=== PATIENT | female | born 1995 | race Caucasian/White ===

== ENCOUNTER → 2024-04-08 | Outpatient (CLI) | payer BC | END | disposition home or self-care (01) | LOC: RADECHMAIN 16:55 | PROVIDERS: ATTEND Family Medicine | DX: Z53.9 Procedure and treatment not carried out, unspecified reason (principal) ==

== ENCOUNTER → 2024-04-08 | Outpatient (CLI) | payer BC ==
--- NOTE | 2024-04-08 17:32 | CA ---
Transthoracic Echo Report Name: Marilyn Gillette Age: 29 Gender: F : 1995 Exam Date: 04/08/2024 17:01 Exam Location: [facility] Ht (in): 65 Wt (lb): 150 Ordering Physician: Lefi Atkins DO Attending/Referring Phys: Madiha Wise PAC Electrical Mechanical Technician Daniela Juarez RDCS Procedure CPT: Indications: R42 dizziness and giddiness Cardiac Hx: Technical Quality: Good Contrast 1: Total Dose (mL): Contrast 2: Total Dose (mL): MEASUREMENTS (Male / Female) Normal Values 2D ECHO LV Diastolic Diameter PLAX 4.7 cm 4.2 - 5.9 / 3.9 - 5.3 cm LV Systolic Diameter PLAX 2.8 cm IVS Diastolic Thickness 0.8 cm 0.6 - 1.0 / 0.6 - 0.9 cm LVPW Diastolic Thickness 0.8 cm 0.6 - 1.0 / 0.6 - 0.9 cm LV Relative Wall Thickness 0.3 LVOT Diameter 2.0 cm LV Diastolic Volume MOD BP 104.2 cm??? 67 - 155 / 56 - 104 cm??? LV Systolic Volume MOD BP 47.1 cm??? 22 - 58 / 19 - 49 cm??? LV Ejection Fraction MOD BP 54.7 % >= 55 % LV Cardiac Index MOD BP 2406.3 cm???/min???m??? LV Diastolic Volume MOD 4C 105.7 cm??? LV Systolic Volume MOD 4C 47.1 cm??? LV Ejection Fraction MOD 4C 55.5 % LV Cardiac Index MOD 4C 2476.2 cm???/min???m??? LV Diastolic Length 4C 8.0 cm LV Systolic Length 4C 6.6 cm LV Diastolic Volume MOD 2C 102.2 cm??? LV Systolic Volume MOD 2C 44.0 cm??? LV Ejection Fraction MOD 2C 56.9 % LV Cardiac Index MOD 2C 2456.4 cm???/min???m??? LV Diastolic Length 2C 8.1 cm LV Systolic Length 2C 6.2 cm LA Volume 48.9 cm??? 18 - 58 / 22 - 52 cm??? LA Volume Index 27.5 cm???/m??? 16 - 28 cm???/m??? Ascending Aorta Diameter 2.6 cm DOPPLER AV Peak Velocity 118.0 cm/s AV Peak Gradient 5.6 mmHg AV Mean Velocity 81.4 cm/s AV Mean Gradient 2.9 mmHg AV Velocity Time Integral 23.8 cm LVOT Peak Velocity 101.1 cm/s LVOT Peak Gradient 4.1 mmHg LVOT Velocity Time Integral 20.6 cm LVOT Stroke Volume 64.1 cm??? LVOT Stroke Volume Index 36.6 ml/m??? LVOT Cardiac Index 2704.8 cm???/min???m??? AV Area Cont Eq vti 2.7 cm??? AV Area Cont Eq pk 2.7 cm??? MV Area PHT 4.4 cm??? Mitral E Point Velocity 61.3 cm/s Mitral A Point Velocity 47.8 cm/s Mitral E to A Ratio 1.3 MV Deceleration Time 172.4 ms TR Peak Velocity 210.4 cm/s TR Peak Gradient 17.7 mmHg Right Atrial Pressure 5.0 mmHg Pulmonary Artery Systolic Pressu 22.7 mmHg Right Ventricular Systolic Press 22.7 mmHg PV Peak Velocity 89.6 cm/s PV Peak Gradient 3.2 mmHg FINDINGS Left Ventricle Left ventricular ejection fraction is estimated at 55-60 %. Left ventricular cavity size normal. Left ventricular wall thickness normal. No obvious regional wall motion abnormalities. Right Ventricle Normal right ventricular size and function. Right ventricular systolic pressure within normal limits. Right Atrium Normal right atrial size. Left Atrium Normal left atrial size. Mitral Valve Structurally normal mitral valve. No evidence for mitral valve prolapse. No mitral stenosis. Trace mitral regurgitation. Aortic Valve Trileaflet aortic valve. No aortic valve stenosis or regurgitation. Tricuspid Valve Structurally normal tricuspid valve. No tricuspid stenosis. Mild tricuspid regurgitation. Pulmonic Valve Structurally normal pulmonic valve. No pulmonic stenosis. Trace pulmonic regurgitation. Pericardium No pericardial effusion. Aorta Normal size aortic root and proximal ascending aorta. CONCLUSIONS Normal LV function Previewed by: Dr. Mack Edgar MD (Electronically Signed) Final Date: 08 April 2024 17:32
== END | disposition home or self-care (01) ==
LOC: RADECHMAIN 16:17
PROVIDERS: ATTEND Family Medicine
DX: R42 Dizziness and giddiness (principal); R55 Syncope and collapse
CPT/HCPCS: 93225; 93306